=== PATIENT | female | born 1970 | race Caucasian/White ===

== ENCOUNTER 2020-11-18 17:08 | Inpatient (IN) | payer OTHER ==
[~2020-11-18] VITALS: Ht 170.2 cm; Wt 82.1 kg
[2020-11-18] MEDS ORDERED: SODIUM CHLORIDE 0.9% 1,000 ML IVB ONE (17:30)
[2020-11-18 17:53] LABS: Red Blood Cells 1.47 10^6/uL (4.0-5.20)
[2020-11-18 17:54] LABS: Hematocrit 15.7 % (36.0-46.0); Mean Corpuscular Hgb Conc. 31.9 g/dL (32.0-36.0); Mean Corpuscular Volume 106.6 fL (80.0-100.0); White Blood Cell 18.3 10^3/uL (4.4-10.8)
[2020-11-18 18:09] LABS: Albumin 2.6 g/dL (3.4-5.0); Calcium 8.5 mg/dL (8.5-10.1); Potassium 4.2 mmol/L (3.5-5.1)
[2020-11-18 18:18] LABS: BUN/Creatinine Ratio 33.3; Bilirubin, Total 3.6 mg/dL (0.2-1.0); Total Protein 5.6 g/dL (6.4-8.2)
[2020-11-18 18:21] LABS: INR 2.11 (0.9-1.15); Partial Thromboplastin Time 21.5 sec (23.0-31.2)
[2020-11-18 18:36] LABS: Basophils % (manual) 0 (0.0-2.0); Blast Cells 0; Eosinophils % (manual) 0 (0-7); Metamyelocytes % 0; Myelocytes % 0; Promyelocytes % 0; Reactive Lymphocytes 0
[2020-11-18 20:25] LABS: Lactic Acid w/Reflex 12.7 mmol/L (0.4-2.0)
[2020-11-18 20:37] LABS: Band Neutrophils % (manual) 7; Lymphocytes % (manual) 5 (10.0-50.0); Monocytes % (manual) 13 (0-12)
[2020-11-18 20:47] VITALS: BP 108/66
[2020-11-18] MEDS ORDERED: SODIUM CHLORIDE 0.9% 1,000 ML IV ONE (21:15)
[2020-11-18] MEDS ORDERED: VANCOMYCIN PER PHARMACY 0 MG IV SCH (21:15)
[2020-11-18] MEDS ORDERED: MORPHINE SULFATE INJECTION 2 MG/ML SYRG IV PRN (21:15)
[2020-11-18] MEDS ORDERED: NITROGLYCERIN 0.4 MG SL TAB SL PRN (21:15)
[2020-11-18] MEDS ORDERED: PANTOPRAZOLE 40mg/50ML NS AE 50 ML IV SCH (21:15)
[2020-11-18 22:00] VITALS: BP 126/41
[2020-11-18] MEDS: SODIUM CHLORIDE 0.9% 1,000 ML IV SCH (22:28)
[2020-11-18] MEDS ORDERED: VANCOMYCIN 1GM/250ML 250 ML IV ONE (22:30)
[2020-11-18 22:54] VITALS: BP 121/41
[2020-11-18 23:15] VITALS: BP 108/40
[2020-11-19] VITALS (10 sets, daily range): BP systolic 111–140; BP diastolic 56–75
[2020-11-19] MEDS: PIPERACILLIN-TAZOB 3.375GM 100 ML IV SCH ×5 (02:21→23:48)
[2020-11-19 03:10] LABS: Urine Amorphous Crystal FEW /hpf (None Seen); Urine Bacteria FEW /hpf (None Seen); Urine Blood TRACE /uL (Negative); Urine Hyaline Cast MOD /lpf (0 - 2); Urine Mucus FEW (None Seen); Urine WBC 2 /hpf (0 - 5)
[2020-11-19] MEDS ORDERED: ALBUTEROL SULF HFA 90MCG INH 200DOSE IN PRN (03:15)
[2020-11-19 03:20] LABS: Alcohol, Urine < 3.0 mg/dL (0-10); Amphetamine Screen, Urine NEGATIVE (NEGATIVE); Barbiturate Scree,Urine NEGATIVE (NEGATIVE); Benzodiazephine Screen, Urine NEGATIVE (NEGATIVE); Cannabinoid Screen, Urine NEGATIVE (NEGATIVE); Cocaine Screen, Urine NEGATIVE (NEGATIVE); Opiate Scree,Urine NEGATIVE (NEGATIVE); Phencyclidine Screen, Urine NEGATIVE (NEGATIVE)
[2020-11-19] MEDS: SODIUM CHLORIDE 0.9% 1,000 ML IV SCH (08:13)
[2020-11-19 10:21] LABS: Hemoglobin 7.9 g/dL (12.2-16.2); Mean Corpuscular Hgb Conc. 32.6 g/dL (32.0-36.0)
[2020-11-19 10:24] LABS: Hematocrit 24.1 % (36.0-46.0); Mean Corpuscular Hemoglobin 30.5 pg (28.0-32.0); Mean Corpuscular Volume 93.6 fL (80.0-100.0); Red Blood Cells 2.58 10^6/uL (4.0-5.20); White Blood Cell 16.1 10^3/uL (4.4-10.8)
[2020-11-19 10:33] LABS: Albumin 2.5 g/dL (3.4-5.0); Calcium 8.2 mg/dL (8.5-10.1); Potassium 3.6 mmol/L (3.5-5.1)
[2020-11-19] MEDS: FAMOTIDINE (10MG/ML) 2ML VL IV SCH ×2 (10:34→23:48)
[2020-11-19] MEDS: DexAMETHasone SOD PHOS 10MG/1ML VIAL INJ IV SCH (10:34)
[2020-11-19] MEDS: ZINC SULFATE 220mg CAP or TAB PO SCH (10:35)
[2020-11-19] MEDS: CHOLECALCIFEROL (VITD3) 2,000 UNIT CAP/TAB PO SCH (10:35)
[2020-11-19] MEDS: ASCORBIC ACID 1,000 MG TAB PO SCH (10:35)
[2020-11-19 10:41] LABS: BUN/Creatinine Ratio 42.6; Bilirubin, Total 3.2 mg/dL (0.2-1.0); CRP High Sensitivity 2.74 mg/dL (< 0.3); Total Protein 5.4 g/dL (6.4-8.2)
[2020-11-19 10:58] LABS: Basophils % (manual) 0 (0.0-2.0); Blast Cells 0; Eosinophils % (manual) 0 (0-7); Metamyelocytes % 0; Promyelocytes % 0; Reactive Lymphocytes 0
[2020-11-19] MEDS ORDERED: PHYTONADIONE (VIT K)10 MG/ML 1ML VIAL IV ONE (12:30)
[2020-11-19] MEDS ORDERED: phytonadione 10 MG in SODIUM CHL 0.9% 50 ML IV ONE (12:45)
[2020-11-19 13:20] LABS: Band Neutrophils % (manual) 4; Lymphocytes % (manual) 20 (10.0-50.0); Monocytes % (manual) 11 (0-12); Myelocytes % 1
[2020-11-19] MEDS ORDERED: ACETAMINOPHEN 650 MG RECT SUPP PR PRN (14:15)
[2020-11-19] MEDS: VANCOMYCIN 1GM/250ML 250 ML IV SCH (14:34)
[2020-11-19] MEDS: ACETAMINOPHEN 650 mg PER 20.3 mL UD GT PRN (14:41)
[2020-11-19] MEDS: FUROSEMIDE 20 MG/2 ML VIAL IV SCH (18:26)
[2020-11-19] MEDS: CARVEDILOL 3.125 MG TAB PO SCH (23:48)
[2020-11-20] MEDS: VANCOMYCIN 1GM/250ML 250 ML IV SCH ×2 (02:07→15:09)
[2020-11-20] MEDS: PIPERACILLIN-TAZOB 3.375GM 100 ML IV SCH ×3 (06:12→17:53)
[2020-11-20] MEDS: FUROSEMIDE 20 MG/2 ML VIAL IV SCH ×2 (06:12→17:52)
[2020-11-20 07:57] LABS: Basophils # (auto) 0 10 ^3/uL (0-0.2); Eosinophils # (auto) 0 10 ^3/uL (0-0.8); Hemoglobin 7.9 g/dL (12.2-16.2); Lymphocytes # (auto) 1.7 10 ^3/uL (0.4-5.4); Neutrophils # (auto) 8.8 10 ^3/uL (1.6-8.6); Nucleated Red Blood Cells % 0.1 %
[2020-11-20 07:58] LABS: Basophils % (auto) 0.1 % (0.0-2.0); Hematocrit 23.6 % (36.0-46.0); Lymphocytes % (auto) 13.8 % (10.0-50.0); Mean Corpuscular Hemoglobin 31.2 pg (28.0-32.0); Mean Corpuscular Hgb Conc. 33.2 g/dL (32.0-36.0); Mean Corpuscular Volume 93.8 fL (80.0-100.0); Monocytes # (auto) 1.7 10 ^3/uL (0-1.3); Monocytes % (auto) 13.6 % (0.0-12.0); Neutrophils % (auto) 72.5 % (37.0-80.0); Red Blood Cells 2.52 10^6/uL (4.0-5.20); Red Cell Distribution Width 21.8 % (11.8-14.3); White Blood Cell 12.2 10^3/uL (4.4-10.8)
[2020-11-20 08:13] LABS: Potassium 3.7 mmol/L (3.5-5.1)
[2020-11-20 08:15] LABS: INR 1.43 (0.9-1.15); Partial Thromboplastin Time 27.8 sec (23.0-31.2)
[2020-11-20 08:24] LABS: Albumin 2.5 g/dL (3.4-5.0); BUN/Creatinine Ratio 33.7; Bilirubin, Total 2.4 mg/dL (0.2-1.0); Calcium 7.9 mg/dL (8.5-10.1); Total Protein 5.5 g/dL (6.4-8.2)
[2020-11-20] MEDS: DexAMETHasone SOD PHOS 10MG/1ML VIAL INJ IV SCH (08:49)
[2020-11-20] MEDS: CARVEDILOL 3.125 MG TAB PO SCH ×2 (08:50→22:11)
[2020-11-20] MEDS: CHOLECALCIFEROL (VITD3) 2,000 UNIT CAP/TAB PO SCH (08:50)
[2020-11-20] MEDS: ASCORBIC ACID 1,000 MG TAB PO SCH (08:50)
[2020-11-20] MEDS: FAMOTIDINE (10MG/ML) 2ML VL IV SCH ×2 (08:50→22:10)
[2020-11-20] MEDS: ZINC SULFATE 220mg CAP or TAB PO SCH (08:50)
[2020-11-20] MEDS ORDERED: FUROSEMIDE 40 MG/4 ML VIAL IV ONE ×2 (09:45)
[2020-11-20] MEDS: LISINOPRIL 5 MG TAB PO SCH (10:29)
[2020-11-20] MEDS: ONDANSETRON HCL 4 MG/2 ML VIAL IV PRN (10:30)
[2020-11-20] MEDS: ACETAMINOPHEN 650 mg PER 20.3 mL UD GT PRN (10:30)
[2020-11-20] MEDS: FOLIC ACID 1 MG, MULTIPLE VITAMIN 10 ML, MAGNESIUM SULF SDV 50% 8 MEQ, THIAMINE INJ 100... INJ SCH ×5 (15:09)
[2020-11-21] MEDS: PIPERACILLIN-TAZOB 3.375GM 100 ML IV SCH ×4 (00:17→18:58)
[2020-11-21] MEDS: ONDANSETRON HCL 4 MG/2 ML VIAL IV PRN (01:01)
[2020-11-21] MEDS: VANCOMYCIN 1GM/250ML 250 ML IV SCH ×2 (01:46→03:29)
[2020-11-21] MEDS: FUROSEMIDE 20 MG/2 ML VIAL IV SCH ×2 (05:59→18:00)
[2020-11-21] MEDS ORDERED: IOHEXOL 350 MG/ML 100ML IJ ONE (08:26)
[2020-11-21] MEDS: FAMOTIDINE (10MG/ML) 2ML VL IV SCH ×2 (08:56→22:08)
[2020-11-21] MEDS: ENOXAPARIN SOD 60 MG/0.6 ML SYRINGE SC SCH ×2 (08:56→22:09)
[2020-11-21] MEDS: CARVEDILOL 3.125 MG TAB PO SCH ×2 (10:00→22:08)
[2020-11-21] MEDS: LISINOPRIL 5 MG TAB PO SCH (10:00)
[2020-11-21] MEDS: VANCOMYCIN 750mg/250ml 250 ML IV SCH (15:30)
[2020-11-21] MEDS: FOLIC ACID 1 MG, MULTIPLE VITAMIN 10 ML, MAGNESIUM SULF SDV 50% 8 MEQ, THIAMINE INJ 100... INJ SCH ×5 (17:50)
[2020-11-22] MEDS: PIPERACILLIN-TAZOB 3.375GM 100 ML IV SCH ×5 (00:29→23:33)
[2020-11-22] MEDS: VANCOMYCIN 750mg/250ml 250 ML IV SCH ×2 (03:13→15:24)
[2020-11-22] MEDS: ONDANSETRON HCL 4 MG/2 ML VIAL IV PRN (05:07)
[2020-11-22] MEDS: FUROSEMIDE 20 MG/2 ML VIAL IV SCH ×2 (06:31→15:47)
[2020-11-22] MEDS: FAMOTIDINE (10MG/ML) 2ML VL IV SCH ×2 (07:49→22:49)
[2020-11-22] MEDS: ENOXAPARIN SOD 60 MG/0.6 ML SYRINGE SC SCH ×2 (07:49→23:38)
[2020-11-22] MEDS: LISINOPRIL 5 MG TAB PO SCH (07:49)
[2020-11-22] MEDS: CARVEDILOL 3.125 MG TAB PO SCH ×2 (07:49→22:50)
[2020-11-22 09:31] LABS: Albumin 2.1 g/dL (3.4-5.0); BUN/Creatinine Ratio 21.7; Bilirubin, Total 2.1 mg/dL (0.2-1.0); Total Protein 5.1 g/dL (6.4-8.2)
[2020-11-22] MEDS ORDERED: GOLYTELY 4L KIT PO ONE (10:00)
[2020-11-22] MEDS: FOLIC ACID 1 MG, MULTIPLE VITAMIN 10 ML, MAGNESIUM SULF SDV 50% 8 MEQ, THIAMINE INJ 100... INJ SCH ×5 (12:00)
[2020-11-22 12:31] LABS: Calcium 8.6 mg/dL (8.5-10.1)
[2020-11-22 12:33] LABS: Potassium 2.6 mmol/L (3.5-5.1)
[2020-11-22 12:36] LABS: Basophils # (auto) 0 10 ^3/uL (0-0.2); Basophils % (auto) 0.2 % (0.0-2.0); Eosinophils # (auto) 0 10 ^3/uL (0-0.8); Eosinophils % (auto) 0.2 % (0.0-7.0); Hematocrit 26.1 % (36.0-46.0); Hemoglobin 8.5 g/dL (12.2-16.2); Lymphocytes # (auto) 2.5 10 ^3/uL (0.4-5.4); Lymphocytes % (auto) 27.2 % (10.0-50.0); Mean Corpuscular Hemoglobin 30.7 pg (28.0-32.0); Mean Corpuscular Hgb Conc. 32.7 g/dL (32.0-36.0); Mean Corpuscular Volume 93.9 fL (80.0-100.0); Monocytes # (auto) 1.3 10 ^3/uL (0-1.3); Monocytes % (auto) 13.4 % (0.0-12.0); Neutrophils # (auto) 5.5 10 ^3/uL (1.6-8.6); Nucleated Red Blood Cells % 0.3 %; Red Blood Cells 2.78 10^6/uL (4.0-5.20); Red Cell Distribution Width 19.9 % (11.8-14.3); White Blood Cell 9.3 10^3/uL (4.4-10.8)
[2020-11-22] MEDS: POTASSIUM CHL 20MEQ/100ML 100 ML IV SCH ×3 (12:45→17:59)
[2020-11-22] MEDS: ACETAMINOPHEN 650 mg PER 20.3 mL UD GT PRN (20:01)
[2020-11-22 22:00] VITALS: BP 107/64
[2020-11-23] VITALS (7 sets, daily range): BP systolic 100–155; BP diastolic 47–85
[2020-11-23] MEDS ORDERED: VANCOMYCIN HCL 500 MG VL ONE (03:05)
[2020-11-23] MEDS: VANCOMYCIN 750mg/250ml 250 ML IV SCH ×3 (03:16→23:42)
[2020-11-23] MEDS ORDERED: ATOR10TA PO (04:05)
[2020-11-23] MEDS ORDERED: DABI75CA5 PO (04:05)
[2020-11-23] MEDS: PIPERACILLIN-TAZOB 3.375GM 100 ML IV SCH ×4 (05:40→23:31)
[2020-11-23] MEDS: FUROSEMIDE 20 MG/2 ML VIAL IV SCH (05:41)
[2020-11-23 05:55] LABS: Basophils # (auto) 0 10 ^3/uL (0-0.2); Eosinophils # (auto) 0 10 ^3/uL (0-0.8); Eosinophils % (auto) 0.1 % (0.0-7.0); Hematocrit 23.6 % (36.0-46.0)
[2020-11-23 05:57] LABS: Basophils % (auto) 0.2 % (0.0-2.0); Hemoglobin 7.9 g/dL (12.2-16.2); Lymphocytes # (auto) 2.3 10 ^3/uL (0.4-5.4); Mean Corpuscular Hemoglobin 31.1 pg (28.0-32.0); Mean Corpuscular Hgb Conc. 33.4 g/dL (32.0-36.0); Mean Corpuscular Volume 93.1 fL (80.0-100.0); Monocytes # (auto) 1.1 10 ^3/uL (0-1.3); Neutrophils # (auto) 4.5 10 ^3/uL (1.6-8.6); Neutrophils % (auto) 56.7 % (37.0-80.0); Nucleated Red Blood Cells % 0.2 %; Red Blood Cells 2.53 10^6/uL (4.0-5.20); Red Cell Distribution Width 19.6 % (11.8-14.3)
[2020-11-23 06:19] LABS: INR 1.4 (0.9-1.15)
[2020-11-23 06:41] LABS: BUN/Creatinine Ratio 15.2; Bilirubin, Total 2.1 mg/dL (0.2-1.0); Calcium 7.3 mg/dL (8.5-10.1); Total Protein 4.8 g/dL (6.4-8.2)
[2020-11-23 06:57] LABS: Potassium 2.8 mmol/L (3.5-5.1)
[2020-11-23] MEDS ORDERED: POTASSIUM CHLORIDE 60 MEQ, LIDOCAINE 1% (LOCAL ANESTH.) 6 ML in SODIUM CHL 0.9% 500 ML IV ONE (08:00)
[2020-11-23] MEDS: CARVEDILOL 3.125 MG TAB PO SCH ×2 (09:32→21:33)
[2020-11-23] MEDS: LISINOPRIL 5 MG TAB PO SCH (09:33)
[2020-11-23] MEDS: POTASSIUM CHL 20 Meq TABLET PO SCH ×4 (09:43→21:33)
[2020-11-23] MEDS: FAMOTIDINE (10MG/ML) 2ML VL IV SCH (09:43)
[2020-11-23] MEDS: FOLIC ACID 1 MG, MULTIPLE VITAMIN 10 ML, MAGNESIUM SULF SDV 50% 8 MEQ, THIAMINE INJ 100... INJ SCH ×5 (12:00)
[2020-11-23] MEDS ORDERED: MIDAZOLAM HCL 2MG/2ML 2ml VIAL (1mg/ml) ONE (12:20)
[2020-11-23] MEDS ORDERED: fentaNYL CITRATE 100 MCG/2 ML VL ONE (12:20)
[2020-11-23] MEDS ORDERED: MEPERIDINE HCL (50 MG/ML) 1 ML VIAL ONE (12:20)
[2020-11-23] MEDS ORDERED: BENZOCAINE (DENTAL) 20 % SPRAY 60ML MT ONE (12:21)
[2020-11-23] MEDS ORDERED: LIDOCAINE VISCOUS 2% 15ML UD ONE (12:21)
[2020-11-23] MEDS ORDERED: DexAMETHasone SOD PHOS 10MG/1ML VIAL INJ ONE (12:47)
[2020-11-23] MEDS ORDERED: PROPOFOL 10 MG/ML 20 ML IV ONE (12:47)
[2020-11-23] MEDS ORDERED: LABETALOL HCL 5 MG/ML 4ML SYRINGE IV PRN (13:30)
[2020-11-23] MEDS ORDERED: ONDANSETRON HCL 4 MG/2 ML VIAL IV PRN (13:30)
[2020-11-23] MEDS ORDERED: ePHEDrine SULFATE 50 MG/ML AMP IV PRN (13:30)
[2020-11-23] MEDS ORDERED: MAGNESIUM SULFATE 1GM/100ML 100 ML IV ONE (13:30)
[2020-11-23] MEDS ORDERED: MIDAZOLAM HCL 2MG/2ML 2ml VIAL (1mg/ml) IV PRN (13:30)
[2020-11-23] MEDS ORDERED: MORPHINE SULFATE 4 MG/ML SYR/VIAL IV PRN (13:30)
[2020-11-23] MEDS: SUCRALFATE 1 GM/10 ML ORAL SUSP PO SCH ×2 (17:00→21:32)
[2020-11-23] MEDS: FUROSEMIDE 40 MG/4 ML VIAL IV SCH (18:38)
[2020-11-23] MEDS: PANTOPRAZOLE 40 MG TAB PO SCH (21:33)
[2020-11-24 05:21] VITALS: BP 109/64
[2020-11-24] MEDS: SUCRALFATE 1 GM/10 ML ORAL SUSP PO SCH ×4 (05:51→21:12)
[2020-11-24] MEDS: FUROSEMIDE 40 MG/4 ML VIAL IV SCH ×2 (05:51→17:58)
[2020-11-24] MEDS: PIPERACILLIN-TAZOB 3.375GM 100 ML IV SCH ×4 (05:51→23:50)
[2020-11-24] MEDS: VANCOMYCIN 750mg/250ml 250 ML IV SCH ×4 (06:39→23:50)
[2020-11-24 08:00] VITALS: BP 109/56
[2020-11-24] MEDS: POTASSIUM CHL 20 Meq TABLET PO SCH ×2 (09:22→21:24)
[2020-11-24] MEDS: CARVEDILOL 3.125 MG TAB PO SCH ×2 (09:22→21:14)
[2020-11-24] MEDS: PANTOPRAZOLE 40 MG TAB PO SCH ×2 (09:23→21:13)
[2020-11-24] MEDS: LISINOPRIL 5 MG TAB PO SCH (09:24)
[2020-11-24] MEDS: ACETAMINOPHEN 650 mg PER 20.3 mL UD GT PRN (09:25)
[2020-11-24 09:59] LABS: BUN/Creatinine Ratio 12.9; Calcium 7.9 mg/dL (8.5-10.1); Potassium 4.4 mmol/L (3.5-5.1)
[2020-11-24] MEDS: FOLIC ACID 1 MG, MULTIPLE VITAMIN 10 ML, MAGNESIUM SULF SDV 50% 8 MEQ, THIAMINE INJ 100... INJ SCH ×5 (11:12)
[2020-11-24 16:37] VITALS: BP 100/59
[2020-11-24 21:00] VITALS: BP 106/67
[2020-11-25 05:00] VITALS: BP 110/65
[2020-11-25] MEDS: PIPERACILLIN-TAZOB 3.375GM 100 ML IV SCH ×4 (05:47→23:27)
[2020-11-25] MEDS: SUCRALFATE 1 GM/10 ML ORAL SUSP PO SCH ×4 (05:47→21:32)
[2020-11-25] MEDS: FUROSEMIDE 40 MG/4 ML VIAL IV SCH ×2 (05:47→17:35)
[2020-11-25 06:14] LABS: Basophils # (auto) 0 10 ^3/uL (0-0.2); Basophils % (auto) 0.3 % (0.0-2.0); Eosinophils # (auto) 0 10 ^3/uL (0-0.8); Hematocrit 23.3 % (36.0-46.0); Hemoglobin 7.9 g/dL (12.2-16.2); Lymphocytes # (auto) 0.8 10 ^3/uL (0.4-5.4); Lymphocytes % (auto) 9.2 % (10.0-50.0); Mean Corpuscular Hemoglobin 31.4 pg (28.0-32.0); Mean Corpuscular Hgb Conc. 33.8 g/dL (32.0-36.0); Mean Corpuscular Volume 92.8 fL (80.0-100.0); Monocytes # (auto) 0.8 10 ^3/uL (0-1.3); Neutrophils # (auto) 6.9 10 ^3/uL (1.6-8.6); Neutrophils % (auto) 80.5 % (37.0-80.0); Nucleated Red Blood Cells % 0.1 %; Red Blood Cells 2.51 10^6/uL (4.0-5.20); White Blood Cell 8.5 10^3/uL (4.4-10.8)
[2020-11-25 06:35] LABS: Potassium 3.7 mmol/L (3.5-5.1)
[2020-11-25 06:51] LABS: BUN/Creatinine Ratio 16.7; Bilirubin, Total 1.4 mg/dL (0.2-1.0); Calcium 7.5 mg/dL (8.5-10.1); Total Protein 4.8 g/dL (6.4-8.2)
[2020-11-25 08:00] VITALS: BP 112/56
[2020-11-25] MEDS: VANCOMYCIN 750mg/250ml 250 ML IV SCH ×2 (10:15→18:21)
[2020-11-25] MEDS: POTASSIUM CHL 20 Meq TABLET PO SCH ×2 (10:15→21:32)
[2020-11-25] MEDS: CARVEDILOL 3.125 MG TAB PO SCH ×2 (10:16→21:31)
[2020-11-25] MEDS: PANTOPRAZOLE 40 MG TAB PO SCH ×2 (10:18→21:32)
[2020-11-25] MEDS: LISINOPRIL 5 MG TAB PO SCH (10:18)
[2020-11-25] MEDS: FOLIC ACID 1 MG, MULTIPLE VITAMIN 10 ML, MAGNESIUM SULF SDV 50% 8 MEQ, THIAMINE INJ 100... INJ SCH ×5 (11:51)
[2020-11-25] MEDS: ACETAMINOPHEN 650 mg PER 20.3 mL UD GT PRN (12:47)
[2020-11-25] MEDS: ONDANSETRON HCL 4 MG/2 ML VIAL IV PRN (12:48)
[2020-11-25 16:00] VITALS: BP 96/39
[2020-11-25 22:00] VITALS: BP 105/59
[2020-11-26] MEDS: VANCOMYCIN 750mg/250ml 250 ML IV SCH ×3 (03:14→21:00)
[2020-11-26 05:00] VITALS: BP 101/53
[2020-11-26] MEDS: FUROSEMIDE 40 MG/4 ML VIAL IV SCH ×2 (05:37→18:16)
[2020-11-26] MEDS: PIPERACILLIN-TAZOB 3.375GM 100 ML IV SCH ×3 (05:38→18:16)
[2020-11-26] MEDS: SUCRALFATE 1 GM/10 ML ORAL SUSP PO SCH ×3 (07:01→18:16)
[2020-11-26 08:14] VITALS: BP 104/64
[2020-11-26] MEDS: PANTOPRAZOLE 40 MG TAB PO SCH (09:27)
[2020-11-26] MEDS: POTASSIUM CHL 20 Meq TABLET PO SCH (09:28)
[2020-11-26] MEDS: LISINOPRIL 5 MG TAB PO SCH (09:29)
[2020-11-26] MEDS: CARVEDILOL 3.125 MG TAB PO SCH (09:29)
[2020-11-26 16:22] VITALS: BP 96/55
[2020-11-26] MEDS: FOLIC ACID 1 MG, MAGNESIUM SULF SDV 50% 8 MEQ, THIAMINE INJ 100 MG in D5W 5% 1,000 ML INJ SCH (17:15)
[2020-11-26 22:00] VITALS: BP 120/64
[2020-11-27] MEDS: CARVEDILOL 3.125 MG TAB PO SCH ×3 (00:15→22:00)
[2020-11-27] MEDS: SUCRALFATE 1 GM/10 ML ORAL SUSP PO SCH ×5 (00:16→22:00)
[2020-11-27] MEDS: PANTOPRAZOLE 40 MG TAB PO SCH ×3 (00:17→22:00)
[2020-11-27] MEDS: POTASSIUM CHL 20 Meq TABLET PO SCH ×3 (00:17→22:00)
[2020-11-27] MEDS: PIPERACILLIN-TAZOB 3.375GM 100 ML IV SCH ×4 (00:30→18:00)
[2020-11-27 05:00] VITALS: BP 106/67
[2020-11-27] MEDS: FUROSEMIDE 40 MG/4 ML VIAL IV SCH ×2 (05:59→17:05)
[2020-11-27] MEDS: VANCOMYCIN 750mg/250ml 250 ML IV SCH ×2 (06:00→16:00)
[2020-11-27 08:00] VITALS: BP 96/51
[2020-11-27] MEDS: LISINOPRIL 5 MG TAB PO SCH (10:44)
[2020-11-27] MEDS ORDERED: FOLIC ACID INJ SCH ×5 (12:00)
[2020-11-27] MEDS: FOLIC ACID 1 MG, MAGNESIUM SULF SDV 50% 8 MEQ, THIAMINE INJ 100 MG in D5W 5% 1,000 ML INJ SCH (12:00)
[2020-11-27] MEDS ORDERED: MULTIPLE VITAMIN INJ SCH ×5 (12:00)
[2020-11-27] MEDS ORDERED: [UNRECOGNIZED DRUG - OTHER] INJ SCH ×5 (12:00)
[2020-11-27] MEDS: Glucerna Carbsteady SHAKE Vanilla 8oz PO SCH ×2 (12:00→18:00)
[2020-11-27] MEDS ORDERED: MAGNESIUM SULF INJ SCH ×5 (12:00)
[2020-11-27 16:00] VITALS: BP 112/64
[2020-11-28] VITALS: BP 109/60
[2020-11-28] MEDS: PIPERACILLIN-TAZOB 3.375GM 100 ML IV SCH ×4 (07:00→17:37)
[2020-11-28] MEDS: FUROSEMIDE 40 MG/4 ML VIAL IV SCH ×2 (07:00→17:36)
[2020-11-28] MEDS: SUCRALFATE 1 GM/10 ML ORAL SUSP PO SCH ×3 (07:01→17:36)
[2020-11-28 08:00] VITALS: BP 112/62
[2020-11-28] MEDS: Glucerna Carbsteady SHAKE Vanilla 8oz PO SCH ×3 (09:19→17:37)
[2020-11-28] MEDS: CARVEDILOL 3.125 MG TAB PO SCH (10:35)
[2020-11-28] MEDS: VANCOMYCIN 750mg/250ml 250 ML IV SCH ×3 (10:35→21:25)
[2020-11-28] MEDS: PANTOPRAZOLE 40 MG TAB PO SCH (10:36)
[2020-11-28] MEDS: POTASSIUM CHL 20 Meq TABLET PO SCH (10:36)
[2020-11-28] MEDS: LISINOPRIL 5 MG TAB PO SCH (10:37)
[2020-11-28 11:32] LABS: Basophils # (auto) 0 10 ^3/uL (0-0.2); Basophils % (auto) 0.4 % (0.0-2.0); Eosinophils # (auto) 0 10 ^3/uL (0-0.8); Eosinophils % (auto) 0.2 % (0.0-7.0); Hematocrit 26.4 % (36.0-46.0); Hemoglobin 8.9 g/dL (12.2-16.2); Lymphocytes # (auto) 1.7 10 ^3/uL (0.4-5.4); Lymphocytes % (auto) 18.2 % (10.0-50.0); Mean Corpuscular Hemoglobin 30.9 pg (28.0-32.0); Mean Corpuscular Hgb Conc. 33.7 g/dL (32.0-36.0); Mean Corpuscular Volume 91.8 fL (80.0-100.0); Monocytes # (auto) 1.4 10 ^3/uL (0-1.3); Neutrophils # (auto) 6.4 10 ^3/uL (1.6-8.6); Neutrophils % (auto) 66.2 % (37.0-80.0); Red Blood Cells 2.87 10^6/uL (4.0-5.20); Red Cell Distribution Width 19.3 % (11.8-14.3); White Blood Cell 9.6 10^3/uL (4.4-10.8)
[2020-11-28 12:11] LABS: Albumin 1.9 g/dL (3.4-5.0); Calcium 7.5 mg/dL (8.5-10.1); Potassium 3.9 mmol/L (3.5-5.1)
[2020-11-28 12:14] LABS: BUN/Creatinine Ratio 14.1; Bilirubin, Total 1.2 mg/dL (0.2-1.0); Total Protein 5.2 g/dL (6.4-8.2)
[2020-11-28] MEDS: FOLIC ACID 1 MG, MAGNESIUM SULF SDV 50% 8 MEQ, THIAMINE INJ 100 MG in D5W 5% 1,000 ML INJ SCH (12:24)
[2020-11-28] MEDS: HYDROcodone-ACET 5/325MG TAB PO PRN ×2 (12:25→21:26)
[2020-11-28 16:00] VITALS: BP 108/54
[2020-11-28 22:00] VITALS: BP 115/57
[2020-11-29] MEDS: SUCRALFATE 1 GM/10 ML ORAL SUSP PO SCH ×5 (00:37→21:44)
[2020-11-29] MEDS: CARVEDILOL 3.125 MG TAB PO SCH ×3 (00:39→21:45)
[2020-11-29] MEDS: POTASSIUM CHL 20 Meq TABLET PO SCH ×3 (00:40→10:17)
[2020-11-29] MEDS: PANTOPRAZOLE 40 MG TAB PO SCH ×3 (00:40→21:45)
[2020-11-29] MEDS: PIPERACILLIN-TAZOB 3.375GM 100 ML IV SCH ×4 (00:40→18:00)
[2020-11-29 05:00] VITALS: BP 105/60
[2020-11-29] MEDS: VANCOMYCIN 750mg/250ml 250 ML IV SCH ×3 (05:39→23:29)
[2020-11-29] MEDS: FUROSEMIDE 40 MG/4 ML VIAL IV SCH ×2 (06:40→18:00)
[2020-11-29] MEDS: HYDROcodone-ACET 5/325MG TAB PO PRN ×3 (06:42→21:46)
[2020-11-29 08:00] VITALS: BP 94/55
[2020-11-29] MEDS: Glucerna Carbsteady SHAKE Vanilla 8oz PO SCH ×3 (08:00→18:00)
[2020-11-29 08:56] LABS: Hemoglobin 7.9 g/dL (12.2-16.2)
[2020-11-29 08:57] LABS: Hematocrit 23.4 % (36.0-46.0); Mean Corpuscular Hemoglobin 30.5 pg (28.0-32.0); Mean Corpuscular Hgb Conc. 33.6 g/dL (32.0-36.0); Mean Corpuscular Volume 90.8 fL (80.0-100.0); Red Blood Cells 2.58 10^6/uL (4.0-5.20); Red Cell Distribution Width 19.2 % (11.8-14.3); White Blood Cell 10.2 10^3/uL (4.4-10.8)
[2020-11-29 08:58] LABS: Calcium 7.2 mg/dL (8.5-10.1); Potassium 3.5 mmol/L (3.5-5.1)
[2020-11-29 09:00] LABS: BUN/Creatinine Ratio 17.9
[2020-11-29 09:05] LABS: Basophils % (manual) 0 (0.0-2.0); Blast Cells 0; Metamyelocytes % 0; Myelocytes % 0; Promyelocytes % 0; Reactive Lymphocytes 0
[2020-11-29] MEDS: LISINOPRIL 5 MG TAB PO SCH ×2 (10:13→10:16)
[2020-11-29] MEDS: FOLIC ACID 1 MG, MAGNESIUM SULF SDV 50% 8 MEQ, THIAMINE INJ 100 MG in D5W 5% 1,000 ML INJ SCH (12:00)
[2020-11-29 13:27] LABS: Band Neutrophils % (manual) 4; Eosinophils % (manual) 1 (0-7); Lymphocytes % (manual) 19 (10.0-50.0)
[2020-11-29 13:28] LABS: Monocytes % (manual) 10 (0-12)
[2020-11-29 16:00] VITALS: BP 116/56
[2020-11-30 00:36] VITALS: BP 130/67
[2020-11-30] MEDS: HYDROcodone-ACET 5/325MG TAB PO PRN ×4 (03:26→23:25)
[2020-11-30] MEDS: PIPERACILLIN-TAZOB 3.375GM 100 ML IV SCH ×4 (05:36→18:00)
[2020-11-30] MEDS: FUROSEMIDE 40 MG/4 ML VIAL IV SCH ×2 (05:36→18:00)
[2020-11-30] MEDS: SUCRALFATE 1 GM/10 ML ORAL SUSP PO SCH ×4 (05:37→22:01)
[2020-11-30 05:47] VITALS: BP 107/58
[2020-11-30 08:00] VITALS: BP 112/60
[2020-11-30] MEDS: Glucerna Carbsteady SHAKE Vanilla 8oz PO SCH ×3 (08:00→18:00)
[2020-11-30 08:16] LABS: Hemoglobin 7.8 g/dL (12.2-16.2)
[2020-11-30 08:19] LABS: Hematocrit 23.4 % (36.0-46.0); Mean Corpuscular Hemoglobin 30.3 pg (28.0-32.0); Mean Corpuscular Hgb Conc. 33.5 g/dL (32.0-36.0); Mean Corpuscular Volume 90.4 fL (80.0-100.0); Red Blood Cells 2.59 10^6/uL (4.0-5.20); Red Cell Distribution Width 19.4 % (11.8-14.3); White Blood Cell 11.1 10^3/uL (4.4-10.8)
[2020-11-30] MEDS: VANCOMYCIN 750mg/250ml 250 ML IV SCH ×2 (08:30→21:13)
[2020-11-30 08:34] LABS: BUN/Creatinine Ratio 15.2; Calcium 7.1 mg/dL (8.5-10.1); Potassium 3.6 mmol/L (3.5-5.1)
[2020-11-30 08:40] LABS: Basophils % (manual) 0 (0.0-2.0); Promyelocytes % 0; Reactive Lymphocytes 0
[2020-11-30] MEDS: CARVEDILOL 3.125 MG TAB PO SCH ×2 (09:41→22:02)
[2020-11-30] MEDS: POTASSIUM CHL 20 Meq TABLET PO SCH ×2 (09:42→22:02)
[2020-11-30] MEDS: PANTOPRAZOLE 40 MG TAB PO SCH ×2 (09:42→22:02)
[2020-11-30 10:59] LABS: Band Neutrophils % (manual) 25; Blast Cells 1; Eosinophils % (manual) 1 (0-7); Lymphocytes % (manual) 13 (10.0-50.0); Metamyelocytes % 1; Monocytes % (manual) 6 (0-12); Myelocytes % 3
[2020-11-30] MEDS: FOLIC ACID 1 MG, MAGNESIUM SULF SDV 50% 8 MEQ, THIAMINE INJ 100 MG in D5W 5% 1,000 ML INJ SCH (11:30)
[2020-11-30 16:00] VITALS: BP 105/55
[2020-11-30 22:00] VITALS: BP 105/60
[2020-12-01] MEDS: VANCOMYCIN 750mg/250ml 250 ML IV SCH ×3 (00:24→16:17)
[2020-12-01] MEDS: PIPERACILLIN-TAZOB 3.375GM 100 ML IV SCH ×4 (00:25→18:08)
[2020-12-01 05:32] VITALS: BP 110/62
[2020-12-01] MEDS: FUROSEMIDE 40 MG/4 ML VIAL IV SCH ×2 (05:33→18:07)
[2020-12-01] MEDS: HYDROcodone-ACET 5/325MG TAB PO PRN ×3 (05:37→19:38)
[2020-12-01] MEDS: SUCRALFATE 1 GM/10 ML ORAL SUSP PO SCH ×4 (06:27→21:57)
[2020-12-01] MEDS: Glucerna Carbsteady SHAKE Vanilla 8oz PO SCH ×3 (08:41→18:08)
[2020-12-01 09:00] VITALS: BP 115/58
[2020-12-01] MEDS: POTASSIUM CHL 20 Meq TABLET PO SCH ×2 (10:06→21:58)
[2020-12-01] MEDS: PANTOPRAZOLE 40 MG TAB PO SCH ×2 (10:06→21:57)
[2020-12-01] MEDS: CARVEDILOL 3.125 MG TAB PO SCH ×2 (10:06→21:51)
[2020-12-01] MEDS: LISINOPRIL 5 MG TAB PO SCH (10:07)
[2020-12-01] MEDS: FOLIC ACID 1 MG, MAGNESIUM SULF SDV 50% 8 MEQ, THIAMINE INJ 100 MG in D5W 5% 1,000 ML INJ SCH (12:55)
[2020-12-01 16:00] VITALS: BP 101/46
[2020-12-02] VITALS (9 sets, daily range): BP systolic 96–112; BP diastolic 45–56
[2020-12-02] MEDS: HYDROcodone-ACET 5/325MG TAB PO PRN ×2 (05:45)
[2020-12-02] MEDS: PIPERACILLIN-TAZOB 3.375GM 100 ML IV SCH ×2 (05:46)
[2020-12-02] MEDS: FUROSEMIDE 40 MG/4 ML VIAL IV SCH (06:03)
[2020-12-02] MEDS: SUCRALFATE 1 GM/10 ML ORAL SUSP PO SCH ×3 (06:19→18:58)
[2020-12-02] MEDS: Glucerna Carbsteady SHAKE Vanilla 8oz PO SCH ×3 (08:00→18:00)
[2020-12-02] MEDS: VANCOMYCIN 750mg/250ml 250 ML IV SCH ×2 (08:00)
[2020-12-02] MEDS: POTASSIUM CHL 20 Meq TABLET PO SCH (09:54)
[2020-12-02] MEDS: PANTOPRAZOLE 40 MG TAB PO SCH (09:54)
[2020-12-02] MEDS: CARVEDILOL 3.125 MG TAB PO SCH (09:54)
[2020-12-02] MEDS: LISINOPRIL 5 MG TAB PO SCH (09:55)
[2020-12-02] MEDS: FOLIC ACID 1 MG, MAGNESIUM SULF SDV 50% 8 MEQ, THIAMINE INJ 100 MG in D5W 5% 1,000 ML INJ SCH (13:37)
== END 2020-12-02 21:21 | DRG 871 ==
LOC: ER 17:08 → EDBD 17:08 → TELE 21:04 → TELE-CENTR 11-22 22:15 → TELE-EAST 12-01 18:40
PROVIDERS: ADMIT Nurse Practitioner; ATTEND Internal Medicine Nephrology
PROC: 5A09357 Assistance with Respiratory Ventilation, Less than 24 Consecutive Hours, Continuous Positive Airway Pressure (ICD-10-PCS; principal; 2020-11-18)
PROC: 05H933Z Insertion of Infusion Device into Right Brachial Vein, Percutaneous Approach (ICD-10-PCS; 2020-11-22)
PROC: B54MZZA Ultrasonography of Right Upper Extremity Veins, Guidance (ICD-10-PCS; 2020-11-22)
PROC: 0DBG8ZZ Excision of Left Large Intestine, Via Natural or Artificial Opening Endoscopic (ICD-10-PCS; 2020-11-23)
PROC: 0W3P8ZZ Control Bleeding in Gastrointestinal Tract, Via Natural or Artificial Opening Endoscopic (ICD-10-PCS; 2020-11-23 12:23)
PROC: XW13325 Transfusion of Convalescent Plasma (Nonautologous) into Peripheral Vein, Percutaneous Approach, New Technology Group 5 (ICD-10-PCS; 2020-12-02)
DX: A41.9 Sepsis, unspecified organism (principal); G93.41 Metabolic encephalopathy; I21.4 Non-ST elevation (NSTEMI) myocardial infarction; I50.23 Acute on chronic systolic (congestive) heart failure; J69.0 Pneumonitis due to inhalation of food and vomit; R65.21 Severe sepsis with septic shock; K28.4 Chronic or unspecified gastrojejunal ulcer with hemorrhage; U07.1 COVID-19; J12.82 Pneumonia due to coronavirus disease 2019; S42.202A Unspecified fracture of upper end of left humerus, initial encounter for closed fracture; D62 Acute posthemorrhagic anemia; D68.9 Coagulation defect, unspecified; E44.0 Moderate protein-calorie malnutrition; I42.6 Alcoholic cardiomyopathy; N17.9 Acute kidney failure, unspecified; K29.70 Gastritis, unspecified, without bleeding; K64.8 Other hemorrhoids; K63.5 Polyp of colon; W18.39XA Other fall on same level, initial encounter; E78.5 Hyperlipidemia, unspecified; E87.6 Hypokalemia; Z86.718 Personal history of other venous thrombosis and embolism; Z82.49 Family history of ischemic heart disease and other diseases of the circulatory system; Z87.19 Personal history of other diseases of the digestive system; Z90.710 Acquired absence of both cervix and uterus; Z98.84 Bariatric surgery status; Z79.01 Long term (current) use of anticoagulants; Y93.89 Activity, other specified; Y92.89 Other specified places as the place of occurrence of the external cause; Y99.8 Other external cause status; Z68.28 Body mass index [BMI] 28.0-28.9, adult
CPT/HCPCS: 36415; 36600; 70450; 70486; 71045; 71275; 72125; 74176; 78582; 80048; 80053; 80202; 80307; 80320; 81001; 82140; 82270; 82728; 82805; 82962; 83605; 83615; 83735; 83880; 84484; 85007; 85025; 85027; 85379; 85610; 85730; 86141; 86850; 86900; 86901; 86920; 87040; 87426; 93005; 93306; 93970; 94660; 97110; 97116; 97163; 97530; G0378; J1100; J2001; J2250; J2405; J2543; J2704; J3430; J3480; J3490; J7060

== ENCOUNTER 2021-04-10 20:02 | Inpatient (IN) | payer MEDICAID, OTHER ==
[~2021-04-10] VITALS: Ht 162.6 cm; Wt 56.7 kg
[~2021-04-10 20:02] MED LIST: ATOR10TA PO; DABI75CA5 PO
[2021-04-10 21:52] LABS: Basophils # (auto) 0.1 10 ^3/uL (0-0.2); Basophils % (auto) 0.7 % (0.0-2.0); Eosinophils # (auto) 0 10 ^3/uL (0-0.8); Hematocrit 37.6 % (36.0-46.0); Hemoglobin 12.7 g/dL (12.2-16.2); Lymphocytes # (auto) 2.8 10 ^3/uL (0.4-5.4); Lymphocytes % (auto) 31.9 % (10.0-50.0); Mean Corpuscular Hemoglobin 30.2 pg (28.0-32.0); Mean Corpuscular Hgb Conc. 33.7 g/dL (32.0-36.0); Mean Corpuscular Volume 89.6 fL (80.0-100.0); Monocytes # (auto) 0.6 10 ^3/uL (0-1.3); Monocytes % (auto) 6.5 % (0.0-12.0); Neutrophils # (auto) 5.4 10 ^3/uL (1.6-8.6); Neutrophils % (auto) 60.9 % (37.0-80.0); Nucleated Red Blood Cells % 0.4 %; Platelet Count (auto) 340 10^3/uL (140-450); Red Cell Distribution Width 16.2 % (11.8-14.3); White Blood Cell 8.9 10^3/uL (4.4-10.8)
[2021-04-10 22:10] LABS: INR 1.31 (0.9-1.15); Partial Thromboplastin Time 29.8 sec (23.0-31.2)
[2021-04-10] MEDS ORDERED: LACTULOSE 10g/15ml SOLN PR ONE (22:30)
[2021-04-10] MEDS ORDERED: LACTULOSE 20Gm/30ML SOLN ONE ×2 (23:12→23:15)
[2021-04-10 23:35] LABS: Anion Gap 9 (5-15); Blood Urea Nitrogen 60 mg/dL (7-18); Carbon Dioxide 20 mmol/L (21-32); Chloride 101 mmol/L (98-107); Glucose 108 mg/dL (74-106); Potassium 5.5 mmol/L (3.5-5.1); Sodium 130 mmol/L (136-145)
[2021-04-10 23:36] LABS: Alanine Aminotransferase 37 U/L (13-56); Alkaline Phosphatase 175 U/L (45-117); Aspartate Aminotransferase 71 U/L (15-37); BUN/Creatinine Ratio 32.3; Calcium 8.5 mg/dL (8.5-10.1); GFR African American 36 mL/min; GFR Non-African American 30 mL/min; Total Protein 6.7 g/dL (6.4-8.2)
[2021-04-10 23:37] LABS: Albumin 2.3 g/dL (3.4-5.0); Magnesium 2.1 mg/dL (1.6-2.6)
[2021-04-11] VITALS (25 sets, daily range): BP systolic 100–160; BP diastolic 41–82
[2021-04-11] MEDS ORDERED: NITROGLYCERIN 0.4 MG SL TAB SL PRN (01:00)
[2021-04-11] MEDS ORDERED: MORPHINE SULFATE 4 MG/ML SYR/VIAL IV PRN (01:00)
[2021-04-11] MEDS ORDERED: hydrALAZINE HCL 20 MG/ML VL IV PRN (01:00)
[2021-04-11] MEDS ORDERED: DEXTROSE (50%) 50ML SYRG IV ONE (01:00)
[2021-04-11] MEDS ORDERED: SODIUM BICARBONATE 8.4% INJ 50ML SYRINGE IV ONE (01:00)
[2021-04-11] MEDS ORDERED: ACETAMINOPHEN 325 MG RECT SUPP PR PRN (01:00)
[2021-04-11] MEDS ORDERED: MORPHINE SULF INJ 2 MG/ML SYRINGE 1ML IV PRN (01:00)
[2021-04-11] MEDS ORDERED: SODIUM ZIRCONIUM CYCL 10 GM PAK PO ONE (01:00)
[2021-04-11] MEDS ORDERED: ONDANSETRON HCL 4 MG/2 ML VIAL IV PRN (01:00)
[2021-04-11] MEDS ORDERED: ALBUMIN 25% 50 ML IV ONE (01:00)
[2021-04-11] MEDS: D5W/SOD CHLO 0.9% 1,000 ML IV SCH ×2 (01:33→20:34)
[2021-04-11] MEDS: LACTULOSE 10g/15ml SOLN PR SCH ×2 (06:00→13:00)
[2021-04-11 08:04] LABS: Basophils # (auto) 0.1 10 ^3/uL (0-0.2); Basophils % (auto) 0.5 % (0.0-2.0); Eosinophils # (auto) 0 10 ^3/uL (0-0.8); Hematocrit 35.2 % (36.0-46.0); Lymphocytes # (auto) 2.5 10 ^3/uL (0.4-5.4); Lymphocytes % (auto) 19.8 % (10.0-50.0); Mean Corpuscular Hemoglobin 29.9 pg (28.0-32.0); Monocytes # (auto) 0.7 10 ^3/uL (0-1.3); Monocytes % (auto) 5.9 % (0.0-12.0); Neutrophils # (auto) 9.1 10 ^3/uL (1.6-8.6); Neutrophils % (auto) 73.8 % (37.0-80.0); Nucleated Red Blood Cells % 0.2 %; Platelet Count (auto) 340 10^3/uL (140-450); Red Cell Distribution Width 15.5 % (11.8-14.3); White Blood Cell 12.4 10^3/uL (4.4-10.8)
[2021-04-11 08:17] LABS: Albumin 2.6 g/dL (3.4-5.0); BUN/Creatinine Ratio 27.4; Calcium 8.7 mg/dL (8.5-10.1); Potassium 5.2 mmol/L (3.5-5.1)
[2021-04-11 08:27] LABS: Bilirubin, Total 3.5 mg/dL (0.2-1.0); Total Protein 6.5 g/dL (6.4-8.2)
[2021-04-11] MEDS: FAMOTIDINE (10MG/ML) 2ML VL IV SCH ×2 (10:11→22:01)
[2021-04-11] MEDS ORDERED: FUROSEMIDE 20 MG/2 ML VIAL IV ONE (16:15)
[2021-04-11] MEDS: ALBUMIN 25% 50 ML IV SCH ×2 (17:26→23:16)
[2021-04-11] MEDS: MIDODRINE HCL 10 MG TAB PO SCH (18:00)
[2021-04-11 18:47] LABS: Urine Bacteria NONE SEEN /hpf (None Seen); Urine Blood 3+ /uL (Negative); Urine Hyaline Cast MOD /lpf (0 - 2); Urine Mucus FEW (None Seen); Urine Specific Gravity 1.019 (1.001-1.035); Urine WBC 124 /hpf (0 - 5)
[2021-04-11 18:59] LABS: Amphetamine Screen, Urine NEGATIVE (NEGATIVE); Barbiturate Scree,Urine NEGATIVE (NEGATIVE); Benzodiazephine Screen, Urine NEGATIVE (NEGATIVE); Cannabinoid Screen, Urine NEGATIVE (NEGATIVE); Cocaine Screen, Urine NEGATIVE (NEGATIVE); Opiate Scree,Urine NEGATIVE (NEGATIVE); Phencyclidine Screen, Urine NEGATIVE (NEGATIVE)
[2021-04-11 19:03] LABS: Creatinine, Urine 152 mg/dL (30.0-125.0); Sodium Urine < 5 mmol/L (40-220)
[2021-04-11] MEDS: OCTREOTIDE ACETATE 100 MCG/ML VL SUBCUT SCH (22:01)
[2021-04-11] MEDS: LACTULOSE 20Gm/30ML SOLN PO SCH (22:01)
[2021-04-12] VITALS (31 sets, daily range): BP systolic 103–161; BP diastolic 33–75
[2021-04-12 05:23] LABS: Basophils # (auto) 0.1 10 ^3/uL (0-0.2); Basophils % (auto) 0.6 % (0.0-2.0); Eosinophils # (auto) 0 10 ^3/uL (0-0.8); Hematocrit 34.9 % (36.0-46.0); Hemoglobin 11.7 g/dL (12.2-16.2); Lymphocytes # (auto) 3.1 10 ^3/uL (0.4-5.4); Lymphocytes % (auto) 19.7 % (10.0-50.0); Mean Corpuscular Hemoglobin 29.3 pg (28.0-32.0); Mean Corpuscular Hgb Conc. 33.4 g/dL (32.0-36.0); Mean Corpuscular Volume 87.6 fL (80.0-100.0); Monocytes # (auto) 1.3 10 ^3/uL (0-1.3); Monocytes % (auto) 8.1 % (0.0-12.0); Neutrophils # (auto) 11.4 10 ^3/uL (1.6-8.6); Neutrophils % (auto) 71.6 % (37.0-80.0); Nucleated Red Blood Cells % 0.1 %; Platelet Count (auto) 250 10^3/uL (140-450); Red Blood Cells 3.99 10^6/uL (4.0-5.20); Red Cell Distribution Width 15.9 % (11.8-14.3); White Blood Cell 15.9 10^3/uL (4.4-10.8)
[2021-04-12 05:39] LABS: Albumin 2.9 g/dL (3.4-5.0); Calcium 8.5 mg/dL (8.5-10.1); Potassium 5.3 mmol/L (3.5-5.1)
[2021-04-12 05:43] LABS: BUN/Creatinine Ratio 26.1; Bilirubin, Total 3.6 mg/dL (0.2-1.0); Total Protein 6.3 g/dL (6.4-8.2)
[2021-04-12] MEDS: LACTULOSE 20Gm/30ML SOLN PO SCH ×3 (05:58→18:45)
[2021-04-12] MEDS: MIDODRINE HCL 10 MG TAB PO SCH ×3 (05:59→18:46)
[2021-04-12] MEDS: OCTREOTIDE ACETATE 100 MCG/ML VL SUBCUT SCH ×3 (06:01→22:34)
[2021-04-12] MEDS: ALBUMIN 25% 50 ML IV SCH ×2 (09:08→15:40)
[2021-04-12] MEDS: FAMOTIDINE (10MG/ML) 2ML VL IV SCH ×2 (09:09→22:33)
[2021-04-12] MEDS ORDERED: CLINIMIX PER PHARMACY 0 ML IV SCH (10:45)
[2021-04-12] MEDS: D5W/SOD CHLO 0.9% 1,000 ML IV SCH (15:40)
[2021-04-12] MEDS ORDERED: DEXTROSE (50%) 50ML SYRG IV SCH (18:00)
[2021-04-12] MEDS: InsuLIN REG 1unit/0.01ml Soln (100units/ml) SC SCH (18:00)
[2021-04-12] MEDS: ACCU-CHEK COMFORT CURVE STRIP VI SCH (18:21)
[2021-04-12] MEDS ORDERED: FUROSEMIDE 40 MG/4 ML VIAL ONE (19:12)
[2021-04-12] MEDS ORDERED: FUROSEMIDE 40 MG/4 ML VIAL IV ONE (19:15)
[2021-04-12] MEDS ORDERED: AMINO ACID INFUSION IN D10W 1,000 ML IV NR (20:00)
[2021-04-13] VITALS (24 sets, daily range): BP systolic 110–136; BP diastolic 43–77
[2021-04-13] MEDS: LACTULOSE 20Gm/30ML SOLN PO SCH ×4 (01:12→18:31)
[2021-04-13] MEDS: ALBUMIN 25% 50 ML IV SCH ×2 (01:14→08:51)
[2021-04-13] MEDS: ACCU-CHEK COMFORT CURVE STRIP VI SCH ×4 (06:00→18:00)
[2021-04-13] MEDS: MIDODRINE HCL 10 MG TAB PO SCH ×3 (06:00→17:52)
[2021-04-13] MEDS: InsuLIN REG 1unit/0.01ml Soln (100units/ml) SC SCH ×4 (06:00→18:00)
[2021-04-13 06:01] LABS: Potassium 4.3 mmol/L (3.5-5.1)
[2021-04-13 06:14] LABS: Albumin 2.8 g/dL (3.4-5.0); BUN/Creatinine Ratio 21.8; Bilirubin, Total 3.4 mg/dL (0.2-1.0); Calcium 8.1 mg/dL (8.5-10.1); Magnesium 1.9 mg/dL (1.6-2.6); Phosphorus 4.2 mg/dL (2.5-4.90); Total Protein 5.4 g/dL (6.4-8.2)
[2021-04-13] MEDS: OCTREOTIDE ACETATE 100 MCG/ML VL SUBCUT SCH ×3 (06:34→22:07)
[2021-04-13] MEDS: FAMOTIDINE (10MG/ML) 2ML VL IV SCH ×2 (10:57→22:06)
[2021-04-13] MEDS: D5W/SOD CHLO 0.9% 1,000 ML IV SCH ×2 (13:15→19:57)
[2021-04-13] MEDS ORDERED: AMINO ACID INFUSION IN D10W 1,000 ML IV NR (20:00)
[2021-04-14] VITALS (29 sets, daily range): BP systolic 85–127; BP diastolic 37–53
[2021-04-14] MEDS: ACCU-CHEK COMFORT CURVE STRIP VI SCH ×3 (00:06→12:00)
[2021-04-14] MEDS: InsuLIN REG 1unit/0.01ml Soln (100units/ml) SC SCH ×3 (00:07→12:00)
[2021-04-14] MEDS: LACTULOSE 20Gm/30ML SOLN PO SCH ×3 (00:08→13:33)
[2021-04-14] MEDS: MIDODRINE HCL 10 MG TAB PO SCH ×2 (06:00→12:00)
[2021-04-14] MEDS: OCTREOTIDE ACETATE 100 MCG/ML VL SUBCUT SCH ×2 (06:11→14:00)
[2021-04-14 06:20] LABS: Albumin 2.3 g/dL (3.4-5.0); Calcium 7.9 mg/dL (8.5-10.1); Magnesium 1.9 mg/dL (1.6-2.6); Potassium 3.6 mmol/L (3.5-5.1)
[2021-04-14 06:25] LABS: BUN/Creatinine Ratio 27.3; Bilirubin, Total 2.1 mg/dL (0.2-1.0); Phosphorus 3.7 mg/dL (2.5-4.90)
[2021-04-14 07:21] LABS: INR 1.62 (0.9-1.15); Partial Thromboplastin Time 46.4 sec (23.0-31.2)
[2021-04-14 07:23] LABS: Hematocrit 30.2 % (36.0-46.0); Mean Corpuscular Hemoglobin 30.5 pg (28.0-32.0); Mean Corpuscular Hgb Conc. 33.2 g/dL (32.0-36.0); Mean Corpuscular Volume 91.9 fL (80.0-100.0); Platelet Count (auto) 130 10^3/uL (140-450); Red Blood Cells 3.29 10^6/uL (4.0-5.20); Red Cell Distribution Width 16.7 % (11.8-14.3); White Blood Cell 4.8 10^3/uL (4.4-10.8)
[2021-04-14 07:26] LABS: Basophils % (manual) 0 (0.0-2.0); Blast Cells 0; Eosinophils % (manual) 0 (0-7); Metamyelocytes % 0; Myelocytes % 0; Promyelocytes % 0; Reactive Lymphocytes 0
[2021-04-14] MEDS ORDERED: SODIUM BICARBONATE 50ML VIAL 50 ML in SOD CHL 0.45% 1,000 ML IV SCH (10:15)
[2021-04-14] MEDS: POTASSIUM CHL 20MEQ/100ML 100 ML IV SCH ×2 (10:17→13:35)
[2021-04-14] MEDS: FAMOTIDINE (10MG/ML) 2ML VL IV SCH (10:18)
[2021-04-14] MEDS ORDERED: ALBUMIN 25% 50 ML IV ONE (11:30)
[2021-04-14 12:09] LABS: Band Neutrophils % (manual) 15; Lymphocytes % (manual) 33 (10.0-50.0); Monocytes % (manual) 12 (0-12)
[2021-04-14] MEDS ORDERED: LACT10SO3 PO (14:32)
[2021-04-14] MEDS ORDERED: MID10T PO (14:32)
[2021-04-14] MEDS ORDERED: CIPR-173 PO (15:04)
[2021-04-14] MEDS ORDERED: AMINO ACID INFUSION IN D10W 1,000 ML IV NR (20:00)
== END 2021-04-14 16:30 | disposition hospice, home (50) | DRG 279 ==
LOC: ER 20:02 → EDBD 20:02 → TELE-WESTW 04-11 00:57 → DOU IN ICU 04-11 13:13
PROVIDERS: ADMIT Nurse Practitioner Family; ATTEND Internal Medicine
PROC: 0T9B70Z Drainage of Bladder with Drainage Device, Via Natural or Artificial Opening (ICD-10-PCS; principal; 2021-04-11)
PROC: 0WHG33Z Insertion of Infusion Device into Peritoneal Cavity, Percutaneous Approach (ICD-10-PCS; 2021-04-13)
PROC: 05H933Z Insertion of Infusion Device into Right Brachial Vein, Percutaneous Approach (ICD-10-PCS; 2021-04-13)
PROC: B54MZZA Ultrasonography of Right Upper Extremity Veins, Guidance (ICD-10-PCS; 2021-04-13)
PROC: 0W9G30Z Drainage of Peritoneal Cavity with Drainage Device, Percutaneous Approach (ICD-10-PCS; 2021-04-13)
DX: K72.90 Hepatic failure, unspecified without coma (principal); J96.01 Acute respiratory failure with hypoxia; K76.7 Hepatorenal syndrome; N17.0 Acute kidney failure with tubular necrosis; G93.41 Metabolic encephalopathy; D64.9 Anemia, unspecified; E11.9 Type 2 diabetes mellitus without complications; K70.31 Alcoholic cirrhosis of liver with ascites; E87.5 Hyperkalemia; J98.11 Atelectasis; F10.10 Alcohol abuse, uncomplicated; N39.0 Urinary tract infection, site not specified; Z66 Do not resuscitate; E88.09 Other disorders of plasma-protein metabolism, not elsewhere classified; E78.5 Hyperlipidemia, unspecified; Z20.822 Contact with and (suspected) exposure to COVID-19; Z79.899 Other long term (current) drug therapy; Z82.49 Family history of ischemic heart disease and other diseases of the circulatory system; Z90.710 Acquired absence of both cervix and uterus; I11.0 Hypertensive heart disease with heart failure; I50.9 Heart failure, unspecified
CPT/HCPCS: 36415; 36600; 70450; 71045; 76700; 80053; 80307; 80320; 81001; 82040; 82140; 82570; 82805; 82962; 83605; 83735; 84100; 84300; 84478; 84484; 85007; 85025; 85027; 85610; 85730; 87040; 87081; 87086; 87088; 87186; 87426; 93005; 96365; 96375; G0378; J1815; J3480; J3490; J7042